=== PATIENT | female | born 1975 | race Caucasian/White ===

== ENCOUNTER 2017-03-03 14:53 | Emergency (ER) | payer BC, OTHER ==
[~2017-03-03] VITALS: Ht 162.6 cm; Wt 47.7 kg
[~2017-03-03 14:53] MED LIST: AMITIZA8 MICROGRA PO; AMRIX PO; Astelin, Astepro 0.1 BOTH NARES; FEOSOL325 MG PO; Folvite PO; KADIAN20 MG PO; LEXAPRO20 MG PO; LIDODERM 5% P1 PATCH TD; Marinol PO; Percocet 5/325,Endoc PO; Phenergan PO; Proventil,Ventolin H IH; VICODIN HP 11 TABLET PO; Vitamin B Complex PO; Vitamin B-12 IM; ZOFRAN8 M1 PO; [UNRECOGNIZED DRUG - OTHER] PO
[2017-03-03 17:42] VITALS: BP 83/57
== END 2017-03-03 17:56 | disposition left against medical advice (07) ==
LOC: EME 14:53
DX: R10.9 Unspecified abdominal pain (principal); Z53.20 Procedure and treatment not carried out because of patient's decision for unspecified reasons; J45.909 Unspecified asthma, uncomplicated
CPT/HCPCS: 74000; 99281; 99283

== ENCOUNTER → 2018-03-24 | Outpatient (CLI) | payer BC, MEDICARE | END | disposition home or self-care (01) | LOC: CDC 14:30 | DX: Z01.810 Encounter for preprocedural cardiovascular examination (principal); K31.6 Fistula of stomach and duodenum; R94.31 Abnormal electrocardiogram [ECG] [EKG] | CPT/HCPCS: 93000 ==